=== PATIENT | female | born 2005 | race Caucasian/White ===

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

== ENCOUNTER 2023-05-27 18:53 | Emergency (ER) | payer SELFPAY ==
[~2023-05-27] VITALS: Ht 152.4 cm; Wt 56.8 kg
[2023-05-27 19:11] VITALS: TEMP 98.5
[2023-05-27] MEDS ORDERED: NS 1,000 ML IV ONE (21:15)
[2023-05-27 22:00] LABS: COLLECTION METHOD CLEAN CATCH
[2023-05-27 22:03] LABS: BASO % 0.3 % (0.0-2.0); EOS # 0.1 K/mm3 (0.0-0.7); EOS % 0.7 % (0.0-4.0); GRAN # 7.4 K/mm3 (1.4-6.5); HEMATOCRIT 43.2 % (35.0-45.0); HEMOGLOBIN 15.3 g/dl (12.0-15.0); LYMPH # 2.7 K/mm3 (1.2-3.4); LYMPH % 25.3 % (20.0-51.0); MEAN CELL VOLUME 91 fl (80.0-95.0); MEAN CORPUSCULAR HEMOGLOBIN 32 pg (26-32); MEAN CORPUSCULAR HGB CONC 35 g/dl (33.0-37.0); MEAN PLATELET VOLUME 8.6 fl (7.4-10.4); MONO # 0.5 K/mm3 (0.1-0.6); MONO % 4.5 % (1.7-9.3); PLATELET COUNT 234 K/mm3 (130-400); RED BLOOD COUNT 4.73 M/mm3 (4.10-5.30); REDCELL DISTRIBUTION WIDTH-CV 11.9 % (11.5-14.5)
[2023-05-27 22:25] LABS: BILIRUBIN,TOTAL 0.6 mg/dL (0.2-1.2); CALCIUM 9.8 mg/dL (8.4-10.2); CREATININE, serum 0.8 mg/dL (0.57-1.11); POTASSIUM 3.6 mmol/L (3.5-4.5); TOTAL PROTEIN 7.5 gm/dL (6.2-8.1)
[2023-05-27 22:30] LABS: URINE APPEARANCE Turbid (CLEAR/HAZY); URINE COLOR Red (YELLOW)
[2023-05-27 22:32] LABS: URINE BACTERIA Occasional /hpf (NONE SEEN); URINE RBC >50 /hpf (0-2)
[2023-05-27 23:17] VITALS: BP 102/66; PULSE 78
== END 2023-05-27 23:17 | disposition home or self-care (01) ==
LOC: COL.ER 18:53
PROVIDERS: Emergency Medicine
DX: O20.9 Hemorrhage in early pregnancy, unspecified (principal); Z3A.01 Less than 8 weeks gestation of pregnancy
CPT/HCPCS: J7030

== ENCOUNTER 2024-02-13 18:47 | Outpatient (CLI) | payer MEDICAID ==
[~2024-02-13] VITALS: Wt 77.7 kg
--- NOTE | 2024-02-13 18:50 | NUR ---
PT TO UNIT AMBULATORY WITH FOB WITH COMPLAINTS OF CTX SINCE YESTERDAY AND INCREASED DISCHARGE. PT STATES DISCHARGE IS A MUCUS CONSISTENCY BUT UNSURE IF SROM HAS OCCURED. PT ORIENTED TO ROOM, CHANGED INTO GOWN. EFM X2 APPLIED, VS OBTAINED, AMNIOSWAB NEGATIVE, SVE PERFORMED.
[2024-02-13 19:30] VITALS: BP 118/69; PULSE 88; TEMP 99.1
[2024-02-13 20:11] VITALS: BP 116/55; PULSE 92
--- NOTE | 2024-02-13 20:11 | NUR ---
PT MAY DC HOME PER DR. KIMBALL. MONITORING DCd AT THIS TIME. PT TO CHANGE WHILE DISCHARGE PAPERWORK PREPARED.
[2024-02-13] MEDS ORDERED: PRENATAL TABLET PO (20:39)
--- NOTE | 2024-02-13 20:55 | NUR ---
discharge instructions reviewed with pt and spouse. Questions invited and answered.Ambulatory off unit.
[2024-02-14] MEDS ORDERED: LR 1,000 ML IV PRN (00:45)
== END 2024-02-13 20:55 | disposition home or self-care (01) ==
LOC: LDRO 18:47
DX: O62.9 Abnormality of forces of labor, unspecified (principal); Z3A.36 36 weeks gestation of pregnancy